=== PATIENT | female | born 1990 | race Two or more races ===

== ENCOUNTER 2017-04-17 10:30 | Emergency (ER) | payer MEDICAID ==
[~2017-04-17] VITALS: Ht 165.1 cm; Wt 74.3 kg
[~2017-04-17 10:30] MED LIST: CYCL5TAB10; TRAM100T2
[2017-04-17] MEDS ORDERED: SODIUM CHLORIDE 0.9% 1,000ML IVBOLUS ONE (12:00)
[2017-04-17] MEDS ORDERED: ONDANSETRON 2MG/ML, 2ML ONE ×3 (12:00→14:47)
[2017-04-17] MEDS ORDERED: ONDANSETRON 2MG/ML, 2ML IVPush ONE ×3 (12:00→15:00)
[2017-04-17] MEDS ORDERED: HYDROmorphone 2 MG/ML, 1ML ONE ×3 (12:00→14:47)
[2017-04-17] MEDS ORDERED: SODIUM CHLORIDE FLUSH 10ML SYR IVF ONE (12:00)
[2017-04-17 12:05] LABS: HEMATOCRIT 50.9 % (34.6-47.8); HEMOGLOBIN 17.7 g/dL (11.7-16.4)
[2017-04-17] MEDS: HYDROmorphone 1 MG/ML, 1ML IVPush PRN ×2 (12:13→13:28)
[2017-04-17 12:40] LABS: ASPARTATE AMINO TRANSFERASE 18 U/L (15-37)
[2017-04-17 12:42] LABS: PATH.CAST-FLAG NOT PRESENT; SPERM-FLAG NOT PRESENT; SRC-FLAG NOT PRESENT; XTAL-FLAG NOT PRESENT; YLC-FLAG NOT PRESENT
[2017-04-17 12:44] LABS: BLOOD UREA NITROGEN 14 mg/dL (7-18)
[2017-04-17] MEDS ORDERED: OMNIPAQUE 350 MG/ML, 100ML BOTTLE ONE (14:16)
[2017-04-17] MEDS ORDERED: HYDROmorphone 2 MG/ML, 1ML IVPush ONE (15:00)
[2017-04-17 15:16] VITALS: BP 112/61
== END 2017-04-17 15:19 | disposition home or self-care (01) ==
LOC: ED 14:20
DX: R10.84 Generalized abdominal pain (principal); Z90.49 Acquired absence of other specified parts of digestive tract
CPT/HCPCS: 36415; 74177; 80053; 81001; 83690; 85025; 96361; 96374; 96375; 96376; 99285; J1170; J2405; J7030; Q9967

== ENCOUNTER 2017-07-23 11:33 | Emergency (ER) | payer MEDICAID ==
[~2017-07-23] VITALS: Ht 165.1 cm; Wt 74.8 kg
[2017-07-23 11:36] VITALS: BP 131/80
[2017-07-23] MEDS ORDERED: TEST2.5G3 IM (12:23)
[2017-07-23 13:21] LABS: BASOPHILS # (AUTO) 0.04 x10^3/uL (0-0.1); BASOPHILS % (AUTO) 1 % (0-1); EOSINOPHILS % (AUTO) 0 % (1-7); LYMPHOCYTES # (AUTO) 2.45 x10^3/uL (1-3.4); LYMPHOCYTES % (AUTO) 29 % (22-44); MD NO; MEAN CORPUSCULAR HEMOGLOBIN 30.9 pg (27.0-34.8); MEAN CORPUSCULAR HGB CONC 33.9 g/dL (32.4-35.8); MEAN CORPUSCULAR VOLUME 91.1 fL (80-100); MEAN PLATELET VOLUME 7.7 fL (7.4-10.4); MONOCYTES # (AUTO) 0.55 x10^3/uL (0.2-0.8); MONOCYTES % (AUTO) 7 % (2-9); NEUTROPHILS # (AUTO) 5.41 x10^3/uL (1.8-6.8); NEUTROPHILS % (AUTO) 64 % (42-75); PLATELET COUNT 280 x10^3/uL (130-400); RED BLOOD COUNT 5.85 x10^6/uL (3.82-5.3); RED CELL DISTRIBUTION WIDTH 13.5 % (9.6-15.2)
[2017-07-23 13:33] LABS: ANION GAP 7 mmol/L (5-15); CALCIUM 9.1 mg/dL (8.5-10.1); CHLORIDE 110 mmol/L (98-107); CREATININE 1.04 mg/dL (0.55-1.02)
== END 2017-07-23 14:52 | disposition home or self-care (01) ==
LOC: ED 13:44
DX: R55 Syncope and collapse (principal); Z90.49 Acquired absence of other specified parts of digestive tract
CPT/HCPCS: 36415; 70450; 80048; 85025; 93005; 99285

== ENCOUNTER 2018-03-24 19:44 | Emergency (ER) | payer MEDICAID ==
[~2018-03-24] VITALS: Ht 165.1 cm; Wt 82.7 kg
[~2018-03-24 19:44] MED LIST changes: +TEST2.5G3 IM; -TRAM100T2; +TRAM100T33
[2018-03-24] MEDS ORDERED: ONDANSETRON ODT 4 MG PO ONE (20:00)
[2018-03-24] MEDS ORDERED: LAMO150T3 PO (20:19)
[2018-03-24] MEDS ORDERED: GABA300C10 PO (20:19)
[2018-03-24 20:24] LABS: BASOPHILS # (AUTO) 0.04 x10^3/uL (0-0.1); BASOPHILS % (AUTO) 0 % (0-1); EOSINOPHILS # (AUTO) 0.11 x10^3/uL (0-0.4); EOSINOPHILS % (AUTO) 1 % (1-7); LYMPHOCYTES # (AUTO) 2.26 x10^3/uL (1-3.4); LYMPHOCYTES % (AUTO) 23 % (22-44); MD NO; MEAN PLATELET VOLUME 7.5 fL (7.4-10.4); MONOCYTES # (AUTO) 0.74 x10^3/uL (0.2-0.8); MONOCYTES % (AUTO) 8 % (2-9); NEUTROPHILS # (AUTO) 6.72 x10^3/uL (1.8-6.8); NEUTROPHILS % (AUTO) 68 % (42-75); PLATELET COUNT 333 x10^3/uL (130-400); RED BLOOD COUNT 5.53 x10^6/uL (3.82-5.3); RED CELL DISTRIBUTION WIDTH 13.1 % (9.6-15.2)
[2018-03-24] MEDS ORDERED: SODIUM CHLORIDE 0.9% 1,000ML IVBOLUS ONE (20:30)
[2018-03-24] MEDS ORDERED: FAMOTIDINE 20 MG/2 ML IVPush ONE (20:30)
[2018-03-24] MEDS ORDERED: MORPHINE SULFATE 4 MG/ML, 1ML IVPush PRN (20:30)
[2018-03-24] MEDS ORDERED: ONDANSETRON 2MG/ML, 2ML IVPush ONE (20:30)
[2018-03-24] MEDS ORDERED: SODIUM CHLORIDE FLUSH 10ML SYR IVF ONE (20:30)
[2018-03-24 20:36] LABS: ALANINE AMINOTRANSFERASE 39 U/L (12-78); ALBUMIN 4.1 g/dL (3.4-5.0); ANION GAP 8 mmol/L (5-15); CALCIUM 8.7 mg/dL (8.5-10.1); CHLORIDE 107 mmol/L (98-107); CREATININE 1.34 mg/dL (0.55-1.02)
[2018-03-24 20:41] LABS: ALKALINE PHOSPHATASE 52 U/L (45-117); BILIRUBIN,TOTAL 0.8 mg/dL (0.2-1.0); TOTAL PROTEIN 7.9 g/dL (6.4-8.2)
[2018-03-24] MEDS ORDERED: ONDANSETRON 2MG/ML, 2ML ONE (20:47)
[2018-03-24] MEDS ORDERED: MORPHINE SULFATE 4 MG/ML, 1ML ONE (20:47)
[2018-03-24] MEDS ORDERED: FAMOTIDINE 20 MG/2 ML ONE (20:48)
[2018-03-24 20:58] VITALS: BP 120/72
== END 2018-03-24 21:36 | disposition home or self-care (01) ==
LOC: ED 21:08
DX: K92.2 Gastrointestinal hemorrhage, unspecified (principal); R19.5 Other fecal abnormalities; Z90.49 Acquired absence of other specified parts of digestive tract; Z79.899 Other long term (current) drug therapy
CPT/HCPCS: 36415; 80053; 83690; 84703; 85025; 86677; 96374; 96375; 99283; J2405; J3490; J7030